=== PATIENT | female | born 1945 | race Caucasian/White ===

== ENCOUNTER 2017-05-13 08:32 | Outpatient (CLI) | payer OTHER ==
[~2017-05-13 08:32] MED LIST: ASA81 MG; LOPRESSOR25 MG; NORVASC5 MG
== END 2017-05-13 08:44 | disposition home or self-care (01) ==
LOC: LAB 08:32
DX: E11.65 Type 2 diabetes mellitus with hyperglycemia (principal); E03.8 Other specified hypothyroidism; E78.4 Other hyperlipidemia; I10 Essential (primary) hypertension

== ENCOUNTER 2017-06-05 10:15 | Outpatient (CLI) | payer OTHER | END 2017-06-05 15:24 | disposition home or self-care (01) | LOC: MAMO-SONO 10:15 | DX: Z12.31 Encounter for screening mammogram for malignant neoplasm of breast (principal); Z87.898 Personal history of other specified conditions; N64.4 Mastodynia ==

== ENCOUNTER 2017-09-30 09:30 | Outpatient (CLI) | payer OTHER | END 2017-09-30 09:36 | disposition home or self-care (01) | LOC: LAB 09:30 | DX: E11.65 Type 2 diabetes mellitus with hyperglycemia (principal) ==

== ENCOUNTER 2017-12-08 09:09 | Outpatient (CLI) | payer OTHER | END 2017-12-08 09:18 | disposition home or self-care (01) | LOC: LAB 09:09 | DX: N39.0 Urinary tract infection, site not specified (principal); R82.79 Other abnormal findings on microbiological examination of urine ==

== ENCOUNTER 2018-02-11 09:10 | Outpatient (CLI) | payer OTHER | END 2018-02-11 09:15 | disposition home or self-care (01) | LOC: LAB 09:10 | DX: E03.8 Other specified hypothyroidism (principal); E11.65 Type 2 diabetes mellitus with hyperglycemia; E78.2 Mixed hyperlipidemia; I10 Essential (primary) hypertension; E55.9 Vitamin D deficiency, unspecified ==

== ENCOUNTER 2018-02-19 11:25 | Outpatient (CLI) | payer OTHER | END 2018-02-19 11:30 | disposition home or self-care (01) | LOC: LAB 11:25 | DX: D50.8 Other iron deficiency anemias (principal); K57.30 Diverticulosis of large intestine without perforation or abscess without bleeding ==

== ENCOUNTER 2018-03-15 11:45 | Outpatient (CLI) | payer OTHER | END 2018-03-15 12:32 | disposition home or self-care (01) | LOC: LAB 11:45 | DX: D50.8 Other iron deficiency anemias (principal); D51.8 Other vitamin B12 deficiency anemias ==

== ENCOUNTER 2018-05-18 13:09 | Outpatient (CLI) | payer OTHER | END 2018-05-18 13:10 | disposition home or self-care (01) | LOC: LAB 13:09 | DX: D64.89 Other specified anemias (principal) ==

== ENCOUNTER 2018-05-24 13:34 | Outpatient (CLI) | payer OTHER | END 2018-05-24 13:40 | disposition home or self-care (01) | LOC: LAB 13:34 | DX: N39.0 Urinary tract infection, site not specified (principal); B96.4 Proteus (mirabilis) (morganii) as the cause of diseases classified elsewhere ==

== ENCOUNTER 2018-06-25 12:17 | Outpatient (CLI) | payer OTHER | END 2018-06-25 12:21 | disposition home or self-care (01) | LOC: LAB 12:17 | DX: N39.0 Urinary tract infection, site not specified (principal) ==

== ENCOUNTER 2018-06-28 10:11 | Outpatient (CLI) | payer OTHER | END 2018-06-28 17:00 | disposition home or self-care (01) | LOC: MAMO-SONO 10:11 | DX: Z12.31 Encounter for screening mammogram for malignant neoplasm of breast (principal); Z87.898 Personal history of other specified conditions; N60.01 Solitary cyst of right breast; N60.12 Diffuse cystic mastopathy of left breast ==

== ENCOUNTER 2018-07-12 12:22 | Outpatient (CLI) | payer OTHER | END 2018-07-12 12:56 | disposition home or self-care (01) | LOC: LAB 12:22 | DX: N39.0 Urinary tract infection, site not specified (principal); B96.89 Other specified bacterial agents as the cause of diseases classified elsewhere ==

== ENCOUNTER → 2018-07-27 | Outpatient (CLI) | payer OTHER | END | disposition home or self-care (01) | LOC: NUCLEAR 11:00 | DX: M81.0 Age-related osteoporosis without current pathological fracture (principal) ==

== ENCOUNTER → 2018-07-29 | Outpatient (CLI) | payer OTHER | END | disposition home or self-care (01) | LOC: LAB 13:13 | DX: N92.5 Other specified irregular menstruation (principal) ==

== ENCOUNTER 2018-10-02 08:20 | Outpatient (CLI) | payer OTHER | END 2018-10-02 13:39 | disposition home or self-care (01) | LOC: LAB 08:20 | DX: E78.49 Other hyperlipidemia (principal); I10 Essential (primary) hypertension; I49.8 Other specified cardiac arrhythmias; M85.80 Other specified disorders of bone density and structure, unspecified site ==

== ENCOUNTER 2018-10-19 10:53 | Outpatient (CLI) | payer OTHER | END 2018-10-19 10:58 | disposition home or self-care (01) | LOC: MAMO-SONO 10:53 | DX: N60.11 Diffuse cystic mastopathy of right breast (principal); N60.12 Diffuse cystic mastopathy of left breast ==

== ENCOUNTER 2018-10-29 06:08 | Inpatient (IN) | payer OTHER ==
[~2018-10-29] VITALS: Ht 157.5 cm; Wt 81.6 kg
[2018-11-02] MEDS ORDERED: AMOX-CLAV 875-1 EACH PO (13:42)
[2018-11-02] MEDS ORDERED: INTESTINEX680 M1 PO (13:43)
[2018-11-02] MEDS ORDERED: ZANTAC150 M3 PO (13:43)
== END 2018-11-02 14:10 | disposition home or self-care (01) | DRG 392 ==
LOC: ER 06:08 → SURG 10-30 18:33
PROVIDERS: ADMIT Internal Medicine
DX: K52.89 Other specified noninfective gastroenteritis and colitis (principal); K56.690 Other partial intestinal obstruction; K29.00 Acute gastritis without bleeding; I10 Essential (primary) hypertension; I48.0 Paroxysmal atrial fibrillation; Z79.01 Long term (current) use of anticoagulants; E78.49 Other hyperlipidemia; E86.0 Dehydration; E87.8 Other disorders of electrolyte and fluid balance, not elsewhere classified; D72.828 Other elevated white blood cell count; K57.30 Diverticulosis of large intestine without perforation or abscess without bleeding; K80.80 Other cholelithiasis without obstruction; K76.0 Fatty (change of) liver, not elsewhere classified; Z88.2 Allergy status to sulfonamides

== ENCOUNTER → 2018-11-22 08:16 | Outpatient (CLI) | payer OTHER ==
[~2018-11-22 08:16] MED LIST changes: +AMOX-CLAV 875-1 EACH PO; +INTESTINEX680 M1 PO; +ZANTAC150 M3 PO
== END | disposition home or self-care (01) ==
LOC: LAB 08:16
DX: K52.89 Other specified noninfective gastroenteritis and colitis (principal); N39.0 Urinary tract infection, site not specified; B96.89 Other specified bacterial agents as the cause of diseases classified elsewhere; I10 Essential (primary) hypertension; E78.00 Pure hypercholesterolemia, unspecified; I48.1 Persistent atrial fibrillation

== ENCOUNTER 2018-12-24 09:05 | Outpatient (CLI) | payer OTHER | END 2018-12-24 14:22 | disposition home or self-care (01) | LOC: TOM 09:05 | DX: R10.84 Generalized abdominal pain (principal) ==

== ENCOUNTER 2019-01-04 08:43 | Outpatient (CLI) | payer OTHER | END 2019-01-04 15:00 | disposition home or self-care (01) | LOC: LAB 08:43 | DX: N39.0 Urinary tract infection, site not specified (principal); R82.79 Other abnormal findings on microbiological examination of urine ==

== ENCOUNTER → 2019-01-22 09:59 | Outpatient (CLI) | payer OTHER | END | disposition home or self-care (01) | LOC: LAB 09:59 | DX: I10 Essential (primary) hypertension (principal); Z13.0 Encounter for screening for diseases of the blood and blood-forming organs and certain disorders involving the immune mechanism; Z13.220 Encounter for screening for lipoid disorders; Z13.29 Encounter for screening for other suspected endocrine disorder; I48.0 Paroxysmal atrial fibrillation; E11.9 Type 2 diabetes mellitus without complications; E03.8 Other specified hypothyroidism; N39.0 Urinary tract infection, site not specified ==

== ENCOUNTER 2020-01-17 09:01 | Outpatient (CLI) | payer OTHER | END 2020-01-17 09:14 | disposition home or self-care (01) | LOC: LAB 09:01 | PROVIDERS: ATTEND Obstetrics & Gynecology | DX: N95.1 Menopausal and female climacteric states (principal); B96.1 Klebsiella pneumoniae [K. pneumoniae] as the cause of diseases classified elsewhere; E04.1 Nontoxic single thyroid nodule; E55.9 Vitamin D deficiency, unspecified; E78.00 Pure hypercholesterolemia, unspecified ==

== ENCOUNTER → 2020-01-20 10:28 | Outpatient (CLI) | payer OTHER | END | disposition home or self-care (01) | LOC: LAB 10:28 | PROVIDERS: ATTEND Obstetrics & Gynecology | DX: E04.1 Nontoxic single thyroid nodule (principal); N95.1 Menopausal and female climacteric states; E28.1 Androgen excess; E55.9 Vitamin D deficiency, unspecified; E78.00 Pure hypercholesterolemia, unspecified; Z12.11 Encounter for screening for malignant neoplasm of colon ==

== ENCOUNTER 2020-01-31 10:31 | Outpatient (CLI) | payer OTHER | END 2020-01-31 10:42 | disposition home or self-care (01) | LOC: MAMO-SONO 10:31 | PROVIDERS: ATTEND Obstetrics & Gynecology | DX: Z12.31 Encounter for screening mammogram for malignant neoplasm of breast (principal); N60.11 Diffuse cystic mastopathy of right breast; N60.12 Diffuse cystic mastopathy of left breast ==

== ENCOUNTER 2020-03-16 09:43 | Outpatient (CLI) | payer OTHER | END 2020-03-16 10:07 | disposition home or self-care (01) | LOC: LAB 09:43 | PROVIDERS: ATTEND Obstetrics & Gynecology | DX: D68.8 Other specified coagulation defects (principal); R10.84 Generalized abdominal pain; E04.1 Nontoxic single thyroid nodule; N39.0 Urinary tract infection, site not specified ==

== ENCOUNTER 2020-07-07 08:04 | Outpatient (CLI) | payer OTHER | END 2020-07-07 08:08 | disposition home or self-care (01) | LOC: LAB 08:04 | PROVIDERS: ATTEND Obstetrics & Gynecology | DX: N39.0 Urinary tract infection, site not specified (principal); E78.3 Hyperchylomicronemia; B95.4 Other streptococcus as the cause of diseases classified elsewhere; E04.1 Nontoxic single thyroid nodule ==

== ENCOUNTER 2020-07-13 10:02 | Outpatient (CLI) | payer OTHER | END 2020-07-13 10:06 | disposition home or self-care (01) | LOC: LAB 10:02 | PROVIDERS: ATTEND Physical Medicine & Rehabilitation | DX: Z20.828 Contact with and (suspected) exposure to other viral communicable diseases (principal) ==

== ENCOUNTER 2020-08-01 10:24 | Outpatient (CLI) | payer OTHER | END 2020-08-01 10:35 | disposition home or self-care (01) | LOC: SONOGRAMA 10:24 | PROVIDERS: ATTEND Physical Medicine & Rehabilitation | DX: G56.02 Carpal tunnel syndrome, left upper limb (principal) ==

== ENCOUNTER 2020-09-11 09:27 | Outpatient (CLI) | payer OTHER ==
[2020-10-24] MEDS ORDERED: ZANAFLEX2 MG PO (10:50)
== END 2020-09-11 15:00 | disposition home or self-care (01) ==
LOC: LAB 09:27
PROVIDERS: ATTEND Obstetrics & Gynecology
DX: N39.0 Urinary tract infection, site not specified (principal); E78.49 Other hyperlipidemia; B96.29 Other Escherichia coli [E. coli] as the cause of diseases classified elsewhere

== ENCOUNTER → 2020-11-20 09:31 | Outpatient (CLI) | payer OTHER ==
[~2020-11-20 09:31] MED LIST changes: +ZANAFLEX2 MG PO
== END | disposition home or self-care (01) ==
LOC: LAB 09:31
PROVIDERS: ATTEND Internal Medicine Cardiovascular Disease
DX: I10 Essential (primary) hypertension (principal); E11.9 Type 2 diabetes mellitus without complications; E03.8 Other specified hypothyroidism; E78.2 Mixed hyperlipidemia; Z12.11 Encounter for screening for malignant neoplasm of colon; E55.9 Vitamin D deficiency, unspecified; N39.0 Urinary tract infection, site not specified

== ENCOUNTER → 2020-11-21 08:51 | Outpatient (CLI) | payer OTHER | END | disposition home or self-care (01) | LOC: LAB 08:51 | PROVIDERS: ATTEND Internal Medicine Cardiovascular Disease | DX: I10 Essential (primary) hypertension (principal); E11.9 Type 2 diabetes mellitus without complications; E03.8 Other specified hypothyroidism; E78.2 Mixed hyperlipidemia; Z12.11 Encounter for screening for malignant neoplasm of colon; E55.9 Vitamin D deficiency, unspecified; N39.0 Urinary tract infection, site not specified ==

== ENCOUNTER → 2020-12-10 10:09 | Outpatient (CLI) | payer OTHER | END | disposition home or self-care (01) | LOC: LAB 10:09 | PROVIDERS: ATTEND Internal Medicine Cardiovascular Disease | DX: D64.89 Other specified anemias (principal); Z12.11 Encounter for screening for malignant neoplasm of colon ==

== ENCOUNTER → 2021-02-21 10:56 | Outpatient (CLI) | payer OTHER | END | disposition home or self-care (01) | LOC: LAB 10:56 | PROVIDERS: ATTEND Obstetrics & Gynecology | DX: N39.0 Urinary tract infection, site not specified (principal) ==

== ENCOUNTER 2021-02-25 10:13 | Outpatient (CLI) | payer OTHER | END 2021-02-25 10:29 | disposition home or self-care (01) | LOC: MAMO-SONO 10:13 | PROVIDERS: ATTEND Obstetrics & Gynecology | DX: N60.01 Solitary cyst of right breast (principal); N60.11 Diffuse cystic mastopathy of right breast; N60.12 Diffuse cystic mastopathy of left breast; Z12.31 Encounter for screening mammogram for malignant neoplasm of breast ==

== ENCOUNTER 2021-04-09 10:54 | Outpatient (CLI) | payer OTHER ==
[~2021-04-09 10:54] MED LIST changes: +DOLOGESIC 500-1 EACH PO
== END 2021-04-09 11:05 | disposition home or self-care (01) ==
LOC: RAD 10:54
PROVIDERS: ATTEND Physical Medicine & Rehabilitation
DX: M17.0 Bilateral primary osteoarthritis of knee (principal); M54.59 Other low back pain; M53.3 Sacrococcygeal disorders, not elsewhere classified

== ENCOUNTER → 2021-04-09 11:53 | Outpatient (CLI) | payer OTHER | END | disposition home or self-care (01) | LOC: LAB 11:53 | PROVIDERS: ATTEND Obstetrics & Gynecology | DX: N95.1 Menopausal and female climacteric states (principal); E28.39 Other primary ovarian failure; E04.1 Nontoxic single thyroid nodule; E55.9 Vitamin D deficiency, unspecified ==

== ENCOUNTER 2021-05-16 09:06 | Outpatient (CLI) | payer OTHER | END 2021-05-16 09:12 | disposition home or self-care (01) | LOC: LAB 09:06 | PROVIDERS: ATTEND Internal Medicine Cardiovascular Disease | DX: I10 Essential (primary) hypertension (principal); E11.9 Type 2 diabetes mellitus without complications; E03.8 Other specified hypothyroidism; E78.2 Mixed hyperlipidemia; Z12.11 Encounter for screening for malignant neoplasm of colon; E55.9 Vitamin D deficiency, unspecified; N39.0 Urinary tract infection, site not specified ==

== ENCOUNTER 2021-05-17 10:29 | Outpatient (CLI) | payer OTHER | END 2021-05-17 23:00 | disposition home or self-care (01) | LOC: LAB 10:29 | PROVIDERS: ATTEND Internal Medicine Cardiovascular Disease | DX: I10 Essential (primary) hypertension (principal); E11.9 Type 2 diabetes mellitus without complications; E03.8 Other specified hypothyroidism; E78.2 Mixed hyperlipidemia; Z12.11 Encounter for screening for malignant neoplasm of colon; E59 Dietary selenium deficiency; E55.9 Vitamin D deficiency, unspecified; N39.0 Urinary tract infection, site not specified ==

== ENCOUNTER 2021-09-04 13:50 | Outpatient (CLI) | payer OTHER | END 2021-09-04 14:25 | disposition home or self-care (01) | LOC: NUCLEAR 13:50 | PROVIDERS: ATTEND Physical Medicine & Rehabilitation | DX: Z13.820 Encounter for screening for osteoporosis (principal); M81.0 Age-related osteoporosis without current pathological fracture; Z88.2 Allergy status to sulfonamides; Z88.1 Allergy status to other antibiotic agents ==

== ENCOUNTER 2021-09-10 08:13 | Outpatient (CLI) | payer OTHER | END 2021-09-10 08:18 | disposition home or self-care (01) | LOC: LAB 08:13 | PROVIDERS: ATTEND Internal Medicine Cardiovascular Disease | DX: E03.9 Hypothyroidism, unspecified (principal); I10 Essential (primary) hypertension; E11.9 Type 2 diabetes mellitus without complications; E78.2 Mixed hyperlipidemia ==

== ENCOUNTER 2022-05-16 08:32 | Outpatient (CLI) | payer OTHER | END 2022-05-16 08:33 | disposition home or self-care (01) | LOC: LAB 08:32 | PROVIDERS: ATTEND Internal Medicine Cardiovascular Disease | DX: I10 Essential (primary) hypertension (principal); E11.9 Type 2 diabetes mellitus without complications; E03.9 Hypothyroidism, unspecified; E78.2 Mixed hyperlipidemia; E55.9 Vitamin D deficiency, unspecified; Z12.11 Encounter for screening for malignant neoplasm of colon ==

== ENCOUNTER → 2022-05-19 10:24 | Outpatient (CLI) | payer OTHER | END | disposition home or self-care (01) | LOC: LAB 10:24 | PROVIDERS: ATTEND Internal Medicine Cardiovascular Disease | DX: I10 Essential (primary) hypertension (principal); E11.9 Type 2 diabetes mellitus without complications; E03.9 Hypothyroidism, unspecified; E78.2 Mixed hyperlipidemia; Z12.11 Encounter for screening for malignant neoplasm of colon; E55.9 Vitamin D deficiency, unspecified ==

== ENCOUNTER 2022-05-23 10:21 | Outpatient (CLI) | payer OTHER | END 2022-05-23 10:30 | disposition home or self-care (01) | LOC: LAB 10:21 | PROVIDERS: ATTEND Internal Medicine Cardiovascular Disease | DX: D64.9 Anemia, unspecified (principal); N39.0 Urinary tract infection, site not specified ==

== ENCOUNTER → 2022-06-16 13:34 | Outpatient (CLI) | payer OTHER | END | disposition home or self-care (01) | LOC: LAB 13:34 | PROVIDERS: ATTEND Obstetrics & Gynecology | DX: N39.0 Urinary tract infection, site not specified (principal) ==

== ENCOUNTER → 2022-06-23 | Outpatient (CLI) | payer OTHER | END | disposition home or self-care (01) | LOC: MAMO-SONO 13:19 | PROVIDERS: ATTEND Obstetrics & Gynecology | DX: Z12.31 Encounter for screening mammogram for malignant neoplasm of breast (principal); N60.11 Diffuse cystic mastopathy of right breast; N60.12 Diffuse cystic mastopathy of left breast ==

== ENCOUNTER → 2022-07-17 08:57 | Outpatient (CLI) | payer OTHER | END | disposition home or self-care (01) | LOC: LAB 08:57 | PROVIDERS: ATTEND Internal Medicine Cardiovascular Disease | DX: E03.9 Hypothyroidism, unspecified (principal); I10 Essential (primary) hypertension; E11.9 Type 2 diabetes mellitus without complications; E78.2 Mixed hyperlipidemia ==

== ENCOUNTER 2022-08-11 07:33 | Outpatient (CLI) | payer OTHER | END 2022-08-11 07:36 | disposition home or self-care (01) | LOC: LAB 07:33 | PROVIDERS: ATTEND Internal Medicine Cardiovascular Disease | DX: N39.0 Urinary tract infection, site not specified (principal) ==

== ENCOUNTER 2022-10-16 10:19 | Outpatient (CLI) | payer OTHER | END 2022-10-16 10:20 | disposition home or self-care (01) | LOC: LAB 10:19 | PROVIDERS: ATTEND Internal Medicine Cardiovascular Disease | DX: N39.0 Urinary tract infection, site not specified (principal) ==

== ENCOUNTER → 2022-11-27 08:24 | Outpatient (CLI) | payer OTHER | END | disposition home or self-care (01) | LOC: LAB 08:24 | PROVIDERS: ATTEND Obstetrics & Gynecology | DX: N39.0 Urinary tract infection, site not specified (principal) ==

== ENCOUNTER → 2022-12-25 07:56 | Outpatient (CLI) | payer OTHER | END | disposition home or self-care (01) | LOC: LAB 07:56 | PROVIDERS: ATTEND Internal Medicine Cardiovascular Disease | DX: I10 Essential (primary) hypertension (principal); E03.9 Hypothyroidism, unspecified; E78.2 Mixed hyperlipidemia; N39.0 Urinary tract infection, site not specified ==

== ENCOUNTER → 2023-03-02 12:00 | Outpatient (CLI) | payer OTHER ==
[2023-03-02 12:54] LABS: URINE APPEARANCE Clear; URINE BILIRRUBIN Negative (NEGATIVE); URINE BLOOD Negative; URINE COLOR Yellow; URINE GLUCOSE Negative (NEGATIVE); URINE LEUKOCYTE Moderate; URINE NITRATE Negative; URINE PROTEIN Negative (NEGATIVE); URINE UROBILINOGEN 0.2 E.U./dl
[2023-03-02 13:00] LABS: URINE EPITHELIAL CELLS 10.5 uL (0.0-38.8); URINE RBC 3.5 uL (0.0-20.8); URINE WBC 190.8 uL (0.0-23.2)
== END | disposition home or self-care (01) ==
LOC: LAB 12:00
PROVIDERS: ATTEND Urology
DX: N39.0 Urinary tract infection, site not specified (principal); Z88.2 Allergy status to sulfonamides

== ENCOUNTER 2023-05-06 13:55 | Outpatient (CLI) | payer OTHER | END 2023-05-06 15:11 | disposition home or self-care (01) | LOC: RAD 13:55 | PROVIDERS: ATTEND Physical Medicine & Rehabilitation | DX: M79.641 Pain in right hand (principal) ==

== ENCOUNTER → 2023-05-20 11:02 | Outpatient (CLI) | payer OTHER ==
[2023-05-20 12:16] LABS: HEMATOCRIT 44.5 % (36.0-45.00); MEAN CELL VOLUME 88.8 fL (80.00-100.00); MEAN CORPUSCULAR HEMOGLOBIN 29.9 pg (27.00-32.0); MEAN CORPUSCULAR HGB CONC 33.6 g/dl (32.0-36.0); PLATELET COUNT 301 K/uL (150-450); RED BLOOD COUNT 5.01 M/uL (4.00-6.00); RED CELL DISTRIBUTION WIDTH 14.9 % (11.5-14.5)
[2023-05-20 12:26] LABS: URINE APPEARANCE Cloudy; URINE BILIRRUBIN Negative (NEGATIVE); URINE BLOOD Negative; URINE COLOR Yellow; URINE GLUCOSE Negative (NEGATIVE); URINE LEUKOCYTE Large; URINE NITRATE Positive; URINE PROTEIN Negative (NEGATIVE); URINE UROBILINOGEN 0.2 E.U./dl
[2023-05-20 12:33] LABS: URINE BACTERIA > 9821.5 uL (0.0-1933); URINE EPITHELIAL CELLS 5.8 uL (0.0-38.8); URINE RBC 17.5 uL (0.0-20.8); URINE WBC 913.5 uL (0.0-23.2)
[2023-05-20 12:55] LABS: BILIRUBIN TOTAL 1.07 mg/dL (0.3-1.2); CALCIUM 9.1 mg/dL (8.5-10.1); CREATININE SERUM 0.7 mg/dL (0.55-1.02); GFR 80.93; GLOBULINA 3.4 G/DL (2.4-3.5); POTASSIUM 3.8 mEq/L (3.5-5.1); T4 TOTAL 10.34 UG/DL (4.8-13.9); TOTAL PROTEIN 7.4 gm/dL (6.4-8.2); TSH 1.38 uIU/mL (0.358-3.74)
[2023-05-20 13:09] LABS: ob POSITIVE (NEGATIVE)
[2023-05-20 14:49] LABS: T3 TOTAL 0.876 ng/ml (0.846-2.02); VITAMIN D3 25 HYDROXY 53.88 ng/ml (30-120)
== END | disposition home or self-care (01) ==
LOC: LAB 11:02
PROVIDERS: ATTEND Internal Medicine Cardiovascular Disease
DX: I10 Essential (primary) hypertension (principal); E11.9 Type 2 diabetes mellitus without complications; E03.9 Hypothyroidism, unspecified; E78.2 Mixed hyperlipidemia; E55.9 Vitamin D deficiency, unspecified; N39.0 Urinary tract infection, site not specified